=== PATIENT | female | born 1980 | race Caucasian/White ===

== ENCOUNTER 2022-08-26 09:02 | Outpatient (CLI) | payer OTHER | END 2022-08-26 09:03 | disposition home or self-care (01) | LOC: CSHMAMMO 09:02 | PROVIDERS: ATTEND Psychiatry & Neurology Neurology | DX: Z12.31 Encounter for screening mammogram for malignant neoplasm of breast (principal) | CPT/HCPCS: 77067 ==

== ENCOUNTER 2023-04-26 19:55 | Emergency (ER) | payer OTHER | END 2023-04-26 22:23 | disposition home or self-care (01) | LOC: CSHERS 19:55 | DX: S09.90XA Unspecified injury of head, initial encounter (principal); E03.9 Hypothyroidism, unspecified; F03.90 Unspecified dementia, unspecified severity, without behavioral disturbance, psychotic disturbance, mood disturbance, and anxiety; F31.9 Bipolar disorder, unspecified; F20.9 Schizophrenia, unspecified; F41.9 Anxiety disorder, unspecified; Z79.899 Other long term (current) drug therapy; W06.XXXA Fall from bed, initial encounter | CPT/HCPCS: 70450; 72125 ==